=== PATIENT | male | born 1980 | race Caucasian/White ===

== ENCOUNTER 2016-11-09 21:05 | Emergency (ER) | payer OTHER ==
[~2016-11-09] VITALS: Ht 175.2 cm; Wt 74.8 kg
[~2016-11-09 21:05] MED LIST: ALBUTEROL0.09 MG/A2 IH; ANAPROX DS550 MG PO; ATARAX25 MG PO; ATIVAN0.5 MG PO; BACITRACIN 500U30 GM T; BENADRYL12.5 MG/5 PO; BENADRYL25 MG PO; BENADRYL50 MG PO; CEPHALEXIN500 M1 PO; CLARITIN10 MG PO; CLEOCIN HCL150 MG PO; CLINDAMYCIN150 MG PO; COMPAZINE10 MG PO; CORDROL20 MG PO; CORTISPORIN SUS10 ML OT; DIAZEPAM2 MG PO; DOMEBORO1 PDR T; EES400 MG PO; FLEXERIL10 MG PO; HYDRALAZINE HCL25 MG PO; HYDROCODONE BIT1 T11 PO; IBU-8800 MG PO; KEFLEX500 MG PO; LIDEX0.05% T; MEDROL DOSEPAK4 MG PO; MOTRIN800 MG PO; MYCOLOG-II 10001 CRE TP; NAPROSYN500 MG PO; NKHM; Nystatin Cream15 GM T; ORASONE20 MG PO; PEPCID20 MG PO; PREDNICOT20 MG PO; PREDNISONE10 MG PO; PROVENTIL0.09 MG/AC IH; ROBITUSSIN DM120 ML PO; SUDAFED60 MG PO; TRAMADOL HCL50 MG PO; VIBRAMYCIN100 MG PO; VICODIN 5/500 505 MG PO; VICODIN 500 MG-1 TAB PO; VISTARIL25 M1 PO; VOLTAREN50 M1 PO; ZANTAC 150150 MG PO; ZANTAC150 MG PO; ZITHROMAX Z PA250 MG PO; ZOFRAN4 MG PO
[2016-11-09] MEDS ORDERED: PROZAC10 MG PO (21:10)
[2016-11-09] MEDS ORDERED: KENALOG 0.1%80 GM T (21:24)
[2016-11-09] MEDS ORDERED: PREDNISONE10 MG PO (21:24)
[2016-11-09] MEDS ORDERED: ALLERGY MEDICAT25 M1 PO (21:24)
== END 2016-11-09 21:35 | disposition home or self-care (01) ==
LOC: ED 21:05
DX: L23.89 Allergic contact dermatitis due to other agents (principal); Z88.1 Allergy status to other antibiotic agents; Z88.6 Allergy status to analgesic agent; Z91.012 Allergy to eggs; F17.200 Nicotine dependence, unspecified, uncomplicated

== ENCOUNTER 2016-11-29 02:29 | Emergency (ER) | payer OTHER ==
[~2016-11-29] VITALS: Ht 175.2 cm; Wt 72.6 kg
[~2016-11-29 02:29] MED LIST changes: +ALLERGY MEDICAT25 M1 PO; +KENALOG 0.1%80 GM T; +PROZAC10 MG PO
[2016-11-29 02:54] LABS: BASO % 0.3 % (0.0-1.0); EOS # 0.1 10*3/uL (0.0-0.4); HEMATOCRIT 47.4 % (42.0-52.0); HEMOGLOBIN 16.2 g/dl (14.0-18.0); LYMPH % 24.2 % (27.0-41.0); MEAN CELL VOLUME 86.7 fl (80.0-94.0); MEAN CORPUSCULAR HGB 29.6 pg (27.0-31.0); MEAN CORPUSCULAR HGB CONC 34.2 g/dl (33.0-37.0); MEAN PLATELET VOLUME 8.9 fl (9.6-12.3); MONO # 0.7 10*3/uL (0.1-1.0); MONO % 5.4 % (3.0-9.0); NEUT # 8.6 10*3/uL (2.3-7.9); NEUT % 68.9 % (47.0-73.0); PLATELET COUNT AUTOMATED 269 10*3/uL (130-400); RED BLOOD COUNT 5.47 10*6/uL (4.50-5.90); RED CELL DISTRI WIDTH 13.2 % (0-14.5); WHITE BLOOD COUNT 12.4 10*3/uL (4.8-10.8)
[2016-11-29 03:12] LABS: ALBUMIN 3.5 gm/dl (3.1-4.5); ALKALINE PHOSPHATASE 88 U/L (45-117); BILIRUBIN, TOTAL 0.4 mg/dl (0.2-1.0); BUN 13 mg/dl (7-24); CARBON DIOXIDE 25 mmol/L (21-32); CHLORIDE 107 mmol/L (98-107); EST GLOM FILT AFRICAN AMERICAN > 60 ml/min; GLUCOSE 112 mg/dL (65-99); POTASSIUM 3.8 mmol/L (3.5-5.1); SGOT/AST 17 IU/L (3-35); SGPT/ALT 24 U/L (12-78); SODIUM 141 mmol/L (136-145); TOTAL PROTEIN 6.7 gm/dL (6.4-8.2)
[2016-11-29 03:15] LABS: TROPONIN I < 0.015 ng/ml (<0.045)
== END 2016-11-29 03:47 | disposition home or self-care (01) ==
LOC: ED 02:29
PROVIDERS: Emergency Medicine
DX: R07.89 Other chest pain (principal); R06.02 Shortness of breath; Z88.6 Allergy status to analgesic agent; Z91.012 Allergy to eggs; Z88.1 Allergy status to other antibiotic agents

== ENCOUNTER 2017-02-20 19:56 | Emergency (ER) | payer OTHER ==
[~2017-02-20] VITALS: Ht 175.2 cm; Wt 65.3 kg
[2017-02-20] MEDS ORDERED: MEDROL DOSEPAK4 MG PO (22:04)
[2017-02-20] MEDS ORDERED: CYCLOBENZAPRINE10 MG PO (22:04)
[2017-02-20] MEDS ORDERED: NAPROSYN500 MG PO (22:04)
== END 2017-02-20 22:30 | disposition home or self-care (01) ==
LOC: ED 19:56
DX: S30.0XXA Contusion of lower back and pelvis, initial encounter (principal); F17.200 Nicotine dependence, unspecified, uncomplicated; Z88.1 Allergy status to other antibiotic agents; Z88.6 Allergy status to analgesic agent; Z91.012 Allergy to eggs; W22.8XXA Striking against or struck by other objects, initial encounter; Y93.89 Activity, other specified; Y92.413 State road as the place of occurrence of the external cause; Y99.9 Unspecified external cause status

== ENCOUNTER 2017-03-06 20:38 | Emergency (ER) | payer OTHER ==
[~2017-03-06] VITALS: Ht 175.2 cm; Wt 67.1 kg
[~2017-03-06 20:38] MED LIST changes: +CYCLOBENZAPRINE10 MG PO
[2017-03-06] MEDS ORDERED: BENADRYL ALLERG25 M5 PO (21:20)
[2017-03-06] MEDS ORDERED: ZANTAC 150150 MG PO (21:20)
[2017-03-06] MEDS ORDERED: MEDROL DOSEPAK4 MG PO (21:20)
== END 2017-03-06 22:39 | disposition home or self-care (01) ==
LOC: ED 20:38
DX: T63.481A Toxic effect of venom of other arthropod, accidental (unintentional), initial encounter (principal); R51 Headache; Z88.6 Allergy status to analgesic agent; Z88.1 Allergy status to other antibiotic agents; Z91.012 Allergy to eggs; F17.200 Nicotine dependence, unspecified, uncomplicated; Y92.9 Unspecified place or not applicable

== ENCOUNTER 2017-05-20 21:07 | Emergency (ER) | payer OTHER ==
[~2017-05-20] VITALS: Ht 170.1 cm; Wt 68.0 kg
[~2017-05-20 21:07] MED LIST changes: +BENADRYL ALLERG25 M5 PO
[2017-05-20] MEDS ORDERED: ANAPROX DS550 MG PO (21:58)
[2017-05-20] MEDS ORDERED: Motrin,Rufen800 MG PO (22:23)
== END 2017-05-20 21:31 | disposition home or self-care (01) ==
LOC: ED 21:07
DX: M25.551 Pain in right hip (principal); M25.561 Pain in right knee; F17.200 Nicotine dependence, unspecified, uncomplicated; Z88.5 Allergy status to narcotic agent; Z88.6 Allergy status to analgesic agent; Z91.012 Allergy to eggs; X50.1XXA Overexertion from prolonged static or awkward postures, initial encounter; Y93.72 Activity, wrestling; Y92.89 Other specified places as the place of occurrence of the external cause; Y99.9 Unspecified external cause status

== ENCOUNTER 2018-08-26 01:47 | Emergency (ER) | payer OTHER ==
[~2018-08-26] VITALS: Ht 175.2 cm; Wt 74.8 kg
[~2018-08-26 01:47] MED LIST changes: +LIDEX 0.05% CRE15 GM T; +Motrin,Rufen800 MG PO; +PREDNISONE20 M1 PO
[2018-08-26] MEDS ORDERED: IBU800 MG PO (01:53)
[2018-08-26] MEDS ORDERED: CYCLOBENZAPRINE10 MG PO (01:53)
[2018-10-02] MEDS ORDERED: PREDNISONE20 M1 PO (22:32)
[2018-10-02] MEDS ORDERED: BENADRYL25 M2 PO (22:32)
== END 2018-08-26 02:45 | disposition home or self-care (01) ==
LOC: ED 01:47
DX: M54.2 Cervicalgia (principal); M25.511 Pain in right shoulder; R20.0 Anesthesia of skin; Z91.012 Allergy to eggs; Z88.6 Allergy status to analgesic agent; Z88.1 Allergy status to other antibiotic agents; Z79.899 Other long term (current) drug therapy; X58.XXXA Exposure to other specified factors, initial encounter; Y93.89 Activity, other specified; Y92.89 Other specified places as the place of occurrence of the external cause; Y99.8 Other external cause status

== ENCOUNTER 2020-05-27 15:37 | Emergency (ER) | payer SELFPAY ==
[~2020-05-27 15:37] MED LIST changes: +BENADRYL25 M2 PO; +IBU800 MG PO
[2020-05-27] MEDS ORDERED: CLINDAMYCIN HC300 MG PO (16:40)
== END 2020-05-27 16:47 | disposition home or self-care (01) ==
LOC: ED 15:37
DX: K08.89 Other specified disorders of teeth and supporting structures (principal); F41.9 Anxiety disorder, unspecified; F17.200 Nicotine dependence, unspecified, uncomplicated; Z88.8 Allergy status to other drugs, medicaments and biological substances; Z91.012 Allergy to eggs; Z79.899 Other long term (current) drug therapy

== ENCOUNTER 2020-11-29 18:58 | Emergency (ER) | payer SELFPAY ==
[~2020-11-29] VITALS: Ht 177.8 cm; Wt 77.1 kg
[~2020-11-29 18:58] MED LIST changes: +CLINDAMYCIN HC300 MG PO
[2020-11-29] MEDS ORDERED: DOXYCYCLINE100 M3 PO (19:33)
== END 2020-11-29 19:43 | disposition home or self-care (01) ==
LOC: ED 18:58
DX: R21 Rash and other nonspecific skin eruption (principal); Z91.012 Allergy to eggs; Z88.6 Allergy status to analgesic agent; Z88.1 Allergy status to other antibiotic agents; Z88.8 Allergy status to other drugs, medicaments and biological substances; Z79.899 Other long term (current) drug therapy; Z79.2 Long term (current) use of antibiotics

== ENCOUNTER 2020-12-19 00:28 | Emergency (ER) | payer SELFPAY ==
[~2020-12-19] VITALS: Ht 175.2 cm; Wt 76.2 kg
[~2020-12-19 00:28] MED LIST changes: +DOXYCYCLINE100 M3 PO
[2020-12-19] MEDS ORDERED: CEFDINIR300 MG PO (00:48)
[2020-12-19] MEDS ORDERED: ZYRTEC10 M2 PO (00:48)
== END 2020-12-19 00:55 | disposition home or self-care (01) ==
LOC: ED 00:28
DX: H66.92 Otitis media, unspecified, left ear (principal); Z91.018 Allergy to other foods; Z91.012 Allergy to eggs; Z88.6 Allergy status to analgesic agent; Z88.8 Allergy status to other drugs, medicaments and biological substances

== ENCOUNTER 2021-04-01 14:13 | Emergency (ER) | payer SELFPAY ==
[~2021-04-01 14:13] MED LIST changes: +CEFDINIR300 MG PO; +ZYRTEC10 M2 PO
== END 2021-04-01 14:45 | disposition left against medical advice (07) ==
LOC: ED 14:13
DX: M54.2 Cervicalgia (principal); Z53.21 Procedure and treatment not carried out due to patient leaving prior to being seen by health care provider

== ENCOUNTER → 2021-08-16 | Outpatient (CLI) | payer OTHER | LOC: COVID19 15:37 | PROVIDERS: ATTEND Internal Medicine | DX: U07.1 COVID-19 (principal) ==

== ENCOUNTER 2021-09-24 21:50 | Emergency (ER) | payer SELFPAY ==
[~2021-09-24] VITALS: Ht 175.2 cm; Wt 74.4 kg
[2021-09-24 22:18] LABS: BASO # 0.1 10*3/uL (0.0-0.1); BASO % 0.5 % (0.0-1.0); EOS # 0.1 10*3/uL (0.0-0.4); EOS % 1.4 % (1.0-4.0); HEMATOCRIT 47.2 % (42.0-52.0); LYMPH # 3.2 10*3/uL (1.3-4.4); MEAN CELL VOLUME 87.6 fl (80.0-94.0); MEAN CORPUSCULAR HGB 28.9 pg (27.0-31.0); MEAN CORPUSCULAR HGB CONC 33.1 g/dl (33.0-37.0); MEAN PLATELET VOLUME 8.7 fl (9.6-12.3); MONO # 0.6 10*3/uL (0.1-1.0); MONO % 6.1 % (3.0-9.0); NEUT # 5.5 10*3/uL (2.3-7.9); NEUT % 57.8 % (47.0-73.0); PLATELET COUNT AUTOMATED 278 10*3/uL (130-400); RED BLOOD COUNT 5.39 10*6/uL (4.50-5.90); RED CELL DISTRI WIDTH 13.1 % (0-14.5); WHITE BLOOD COUNT 9.5 10*3/uL (4.8-10.8)
[2021-09-24 22:29] LABS: ACT PARTIAL THROMBO TIME 28.2 SECONDS (20.0-32.1)
[2021-09-24 22:34] LABS: ALKALINE PHOSPHATASE 80 U/L (45-117); BUN 18 mg/dl (7-24); CHLORIDE 108 mmol/L (98-107); POTASSIUM 4.1 mmol/L (3.5-5.1); SGOT/AST 19 IU/L (3-35); SGPT/ALT 36 U/L (12-78); SODIUM 140 mmol/L (136-145); TOTAL PROTEIN 7.1 gm/dL (6.4-8.2)
== END 2021-09-25 01:16 | disposition home or self-care (01) ==
LOC: ED 21:50
PROVIDERS: Emergency Medicine
DX: R07.9 Chest pain, unspecified (principal); F17.210 Nicotine dependence, cigarettes, uncomplicated; Z88.6 Allergy status to analgesic agent; Z88.1 Allergy status to other antibiotic agents; Z91.012 Allergy to eggs

== ENCOUNTER → 2021-10-08 | Outpatient (CLI) | payer SELFPAY | END | disposition home or self-care (01) | LOC: RAD 13:19 | PROVIDERS: ATTEND Family Medicine | DX: M47.812 Spondylosis without myelopathy or radiculopathy, cervical region (principal); M48.02 Spinal stenosis, cervical region; M25.78 Osteophyte, vertebrae ==

== ENCOUNTER 2022-03-20 18:26 | Emergency (ER) | payer SELFPAY ==
[~2022-03-20] VITALS: Wt 76.2 kg
[2022-03-20 20:56] LABS: BASO # 0.1 10*3/uL (0.0-0.1); BASO % 0.6 % (0.0-1.0); EOS # 0.1 10*3/uL (0.0-0.4); EOS % 1.5 % (1.0-4.0); HEMATOCRIT 51.4 % (42.0-52.0); LYMPH # 2.6 10*3/uL (1.3-4.4); LYMPH % 31.1 % (27.0-41.0); MEAN CELL VOLUME 90.2 fl (80.0-94.0); MEAN CORPUSCULAR HGB 29.3 pg (27.0-31.0); MEAN CORPUSCULAR HGB CONC 32.5 g/dl (33.0-37.0); MEAN PLATELET VOLUME 8.6 fl (9.6-12.3); MONO # 0.9 10*3/uL (0.1-1.0); MONO % 10.2 % (3.0-9.0); NEUT # 4.7 10*3/uL (2.3-7.9); NEUT % 56.4 % (47.0-73.0); PLATELET COUNT AUTOMATED 274 10*3/uL (130-400); RED CELL DISTRI WIDTH 13.1 % (0-14.5); WHITE BLOOD COUNT 8.4 10*3/uL (4.8-10.8)
[2022-03-20 21:15] LABS: ALKALINE PHOSPHATASE 85 U/L (45-117); BUN 16 mg/dl (7-24); CHLORIDE 109 mmol/L (98-107); CREATININE 1.03 mg/dL (0.70-1.30); POTASSIUM 4.4 mmol/L (3.5-5.1); SGOT/AST 14 IU/L (3-35); SGPT/ALT 25 U/L (12-78); SODIUM 139 mmol/L (136-145); TOTAL PROTEIN 7.3 gm/dL (6.4-8.2)
[2022-03-21] MEDS ORDERED: CLINDAMYCIN HC300 MG PO (00:06)
== END 2022-03-21 00:10 | disposition home or self-care (01) ==
LOC: ED 18:26
PROVIDERS: Emergency Medicine
DX: K08.89 Other specified disorders of teeth and supporting structures (principal); R11.10 Vomiting, unspecified; Z91.012 Allergy to eggs; Z88.8 Allergy status to other drugs, medicaments and biological substances; Z88.6 Allergy status to analgesic agent; Z79.2 Long term (current) use of antibiotics; Z79.899 Other long term (current) drug therapy

== ENCOUNTER 2022-04-01 17:26 | Emergency (ER) | payer SELFPAY ==
[~2022-04-01] VITALS: Ht 175.2 cm; Wt 72.6 kg
[2022-04-01 18:25] LABS: BASO # 0.1 10*3/uL (0.0-0.1); BASO % 0.7 % (0.0-1.0); EOS # 0.1 10*3/uL (0.0-0.4); EOS % 1.1 % (1.0-4.0); HEMATOCRIT 49.1 % (42.0-52.0); LYMPH # 2.6 10*3/uL (1.3-4.4); LYMPH % 28.2 % (27.0-41.0); MEAN CELL VOLUME 88.9 fl (80.0-94.0); MEAN CORPUSCULAR HGB 29.9 pg (27.0-31.0); MEAN CORPUSCULAR HGB CONC 33.6 g/dl (33.0-37.0); MEAN PLATELET VOLUME 8.6 fl (9.6-12.3); MONO # 0.5 10*3/uL (0.1-1.0); MONO % 5.8 % (3.0-9.0); NEUT # 5.8 10*3/uL (2.3-7.9); PLATELET COUNT AUTOMATED 339 10*3/uL (130-400); RED BLOOD COUNT 5.52 10*6/uL (4.50-5.90); RED CELL DISTRI WIDTH 12.7 % (0-14.5); WHITE BLOOD COUNT 9.1 10*3/uL (4.8-10.8)
[2022-04-01 18:41] LABS: ALKALINE PHOSPHATASE 74 U/L (45-117); BUN 19 mg/dl (7-24); CHLORIDE 107 mmol/L (98-107); SGOT/AST 13 IU/L (3-35); SGPT/ALT 21 U/L (12-78); SODIUM 139 mmol/L (136-145); TOTAL PROTEIN 6.5 gm/dL (6.4-8.2)
[2022-04-01] MEDS ORDERED: PREDNISONE20 M1 PO (18:53)
== END 2022-04-01 19:13 | disposition home or self-care (01) ==
LOC: ED 17:26
PROVIDERS: Emergency Medicine
DX: G51.0 Bell's palsy (principal); Z91.012 Allergy to eggs; Z88.1 Allergy status to other antibiotic agents; Z88.8 Allergy status to other drugs, medicaments and biological substances

== ENCOUNTER 2022-09-05 00:20 | Emergency (ER) | payer OTHER ==
[~2022-09-05] VITALS: Ht 175.2 cm; Wt 76.2 kg
[2022-09-05] MEDS ORDERED: BENADRYL ALLERG25 M5 PO (01:12)
[2022-09-05] MEDS ORDERED: PREDNISONE20 M1 PO (01:12)
== END 2022-09-05 01:29 | disposition home or self-care (01) ==
LOC: ED 00:20
DX: L23.7 Allergic contact dermatitis due to plants, except food (principal); Z88.1 Allergy status to other antibiotic agents; Z88.5 Allergy status to narcotic agent; Z91.012 Allergy to eggs; Z98.890 Other specified postprocedural states; Z87.891 Personal history of nicotine dependence

== ENCOUNTER 2022-09-11 08:44 | Emergency (ER) | payer OTHER ==
[~2022-09-11] VITALS: Ht 175.2 cm; Wt 74.8 kg
[2022-09-11] MEDS ORDERED: CYCLOBENZAPRINE10 MG PO (09:07)
[2022-09-11] MEDS ORDERED: PREDNISONE10 MG PO (09:07)
== END 2022-09-11 09:33 | disposition home or self-care (01) ==
LOC: ED 08:44
DX: M54.42 Lumbago with sciatica, left side (principal); F41.9 Anxiety disorder, unspecified; Z88.5 Allergy status to narcotic agent; Z88.1 Allergy status to other antibiotic agents; Z91.012 Allergy to eggs; Z88.8 Allergy status to other drugs, medicaments and biological substances; Z98.890 Other specified postprocedural states

== ENCOUNTER 2023-02-02 16:53 | Emergency (ER) | payer OTHER ==
[~2023-02-02] VITALS: Ht 175.2 cm; Wt 79.4 kg
[2023-02-02] MEDS ORDERED: PREDNISONE20 M1 PO (17:25)
== END 2023-02-02 17:30 | disposition home or self-care (01) ==
LOC: ED 16:53
DX: L23.7 Allergic contact dermatitis due to plants, except food (principal); F41.9 Anxiety disorder, unspecified; Z91.012 Allergy to eggs; Z88.6 Allergy status to analgesic agent; Z88.1 Allergy status to other antibiotic agents; Z88.5 Allergy status to narcotic agent; Z98.890 Other specified postprocedural states

== ENCOUNTER 2024-04-26 02:50 | Emergency (ER) | payer OTHER ==
[~2024-04-26] VITALS: Ht 175.2 cm; Wt 78.5 kg
[2024-04-26] MEDS ORDERED: IBUPROFEN 800 MG TAB PO ONE (04:50)
[2024-04-26] MEDS ORDERED: predniSONE 20 MG TAB PO ONE (04:50)
[2024-04-26] MEDS ORDERED: Cyclobenzaprine Hydrochlorid 10 MG TAB PO ONE (04:50)
[2024-04-26] MEDS ORDERED: MEDROL DOSEPAK4 MG PO (06:37)
[2024-04-26] MEDS ORDERED: CYCLOBENZAPRINE10 MG PO (06:37)
== END 2024-04-26 06:53 | disposition home or self-care (01) ==
LOC: ED 02:50
DX: S29.012A Strain of muscle and tendon of back wall of thorax, initial encounter (principal); F41.9 Anxiety disorder, unspecified; Z91.012 Allergy to eggs; Z88.5 Allergy status to narcotic agent; Z88.6 Allergy status to analgesic agent; Z88.1 Allergy status to other antibiotic agents; Z98.890 Other specified postprocedural states; Z87.891 Personal history of nicotine dependence; X58.XXXA Exposure to other specified factors, initial encounter; Y93.89 Activity, other specified; Y92.89 Other specified places as the place of occurrence of the external cause; Y99.8 Other external cause status

== ENCOUNTER 2024-11-21 19:41 | Emergency (ER) | payer OTHER ==
[~2024-11-21] VITALS: Ht 175.2 cm; Wt 81.1 kg
[2024-11-21] MEDS ORDERED: PREDNISONE20 M1 PO (20:00)
[2024-11-21] MEDS ORDERED: predniSONE 20 MG TAB PO ONE (20:00)
== END 2024-11-21 20:06 | disposition home or self-care (01) ==
LOC: ED 19:41
DX: L23.7 Allergic contact dermatitis due to plants, except food (principal); Z91.010 Allergy to peanuts; Z88.8 Allergy status to other drugs, medicaments and biological substances; Z88.6 Allergy status to analgesic agent; Z88.1 Allergy status to other antibiotic agents; Z79.899 Other long term (current) drug therapy

== ENCOUNTER 2025-01-22 12:42 | Emergency (ER) | payer OTHER ==
[~2025-01-22] VITALS: Ht 175.2 cm; Wt 76.2 kg
[2025-01-22] MEDS ORDERED: PREDNISONE20 M1 PO (13:17)
== END 2025-01-22 13:20 | disposition home or self-care (01) ==
LOC: ED 12:42
DX: L23.7 Allergic contact dermatitis due to plants, except food (principal); F41.9 Anxiety disorder, unspecified; Z79.899 Other long term (current) drug therapy; Z88.1 Allergy status to other antibiotic agents; Z88.5 Allergy status to narcotic agent; Z88.6 Allergy status to analgesic agent; Z88.8 Allergy status to other drugs, medicaments and biological substances; Z91.012 Allergy to eggs; Z98.890 Other specified postprocedural states